=== PATIENT | female | born 1970 | race Caucasian/White ===

== ENCOUNTER 2024-09-15 11:59 | Outpatient (CLI) | payer OTHER, SELFPAY ==
--- NOTE | ~2024-09-15 | XR_ITS ---
Right Shoulder Technique: AP and scapular Y views were obtained. Clinical History: Pain Findings: No fracture or dislocation is seen. Osseous alignment is anatomic. The glenohumeral and acr omioclavicular joint spaces are preserved. Soft tissues are unremarkable. Impression: Unremarkable right shoulder radiographs. Reviewed, dictated and finalized at [facility]. Impression: Unremarkable right shoulder radiographs.
--- OUTSIDE RECORDS SUMMARY | 2024-09-15 12:33 | XMS_ITS | Clinical Summary ---
Author Organization [facility] Address [address] [place] [address] Care Team Providers Care Furnace Installer Name Role Phone Fabi Hoover MD Primary Care Provider Allergies Active Allergy Reactions Criticality Noted Date Comments Codeine Headache 02/28/2020 Medications ondansetron 4 MG disintegrating tablet Take 1 tablet (4 mg total) by mouth every 8 (eight) hours as needed for Nausea. 20 tablet 0 Active HYDROcodone-acetami nophen 5-325 MG tabletIndications:A cute Pain < 7 Day Supply Take 1 tablet by mouth every 8 (eight) hours as needed for Pain. Indications : Acute Pain < 7 Day Supply 10 tablet 0 Active tiZANidine 4 MG tablet Take 1 tablet (4 mg total) by mouth 3 (three) times daily as needed. 20 tablet 1 Active ondansetron (ZOFRAN-ODT) 4 MG disintegrating tablet Take 1 tablet (4 mg total) by mouth every 8 (eight) hours as needed. 20 tablet 4 Active cyclobenzaprine (FLEXERIL) 10 MG tablet Take 1 tablet (10 mg total) by mouth 3 (three) times daily as needed. 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 Gender Identity Not on file Sexual Orientation Not on file Last Filed Vital Signs Vital Sign Reading Time Taken Comments Blood Pressure 117/57 02/04/2024 11:20 AM CDT Pulse 84 02/04/2024 11:20 AM CDT Temperature 36.4 C (97.6 F) 02/04/2024 9:37 AM CDT Respiratory Rate 16 02/04/2024 11:20 AM CDT Oxygen Saturation 97% 02/04/2024 11:20 AM CDT Inhaled Oxygen Concentration - - Weight 45.4 kg (100 lb) 02/04/2024 9:38 AM CDT Height 157.5 cm (5' 2 ) 02/04/2024 9:38 AM CDT Body Mass Index 18.29 02/04/2024 9:38 AM CDT Plan of Treatment Health Maintenance Due Date Last Done Comments Cervical Cancer Screening Pa p Smear (Age 30 to 64) Every 3 Years 1970 Colorectal Cancer Screening Colonoscopy (10 Years) 1970 Annual Physical 1973 DTaP, Tdap and Td Vaccines ( 1 - Tdap) 1989 Hepatitis B Vaccines (1 of 3 - 19+ 3-dose series) 1989 Cervical Cancer Screening Pa p with HPV Testing (Age 30 to 64) Every 5 Years 2000 Cervical Cancer Screening with HPV 2000 Mammogram Screening 2010 Pneumococcal Vaccine: 50+ Ye ars (1 of 1 - PCV) 2020 Zoster Vaccines (1 of 2) 2020 COVID-19 Vaccine (1 - 2023-2 5 season) 2024 Hepatitis C Completed 07/20/2021 Meningococcal B Vaccine Aged Out No l onger eligible based on patient's age to complete this topic Meningococcal Vaccine Aged Out No nicola cristel eligible based on patient's age to complete this topic RSV Immunizations Under 20 Months Aged Out No longer eligible based on patient's age to complete this topic Procedures Procedure Name Priority Date/Time Associated Diagnosis Comments HEPATITIS PANEL,ACUTE STAT 07/20/2021 12:44 AM EMBLEM MAKER from Last 3 Months or Most Recently Relevant to Health Maintenance Results * HEPATITIS PANEL,ACUTE (07/20/2021 12:44 AM EMBLEM MAKER) HEPATITIS B SURFACE AG NON-REACT FARIDA NON-REACT FARIDA 07/20/2021 2:24 AM EMBLEM MAKER [facility] Comment:HBsAg NOT DETECTED. HEP B CORE IGM NON-REACT FARIDA NON-REACT FARIDA 07/20/2021 2:24 AM EMBLEM MAKER [facility] Comment: IgM ANTI HBc NOT DETECTED. DOES NOT EXCLUDE THE POSSIBILITY OF EXPOSURE TO OR INFECTION WITH HBV. NO RETEST REQUIRED. HIGH DOSES OF BIOTIN MAY INTERFERE WITH THIS TEST RESULT. CORRELATION TO CLINICAL HISTORY AND PRESENTATION RECOMMENDED. HAV IGM NON-REACT FARIDA NON-REACT FARIDA 07/20/2021 2:25 AM EMBLEM MAKER [facility] Comment: IgM ANTI HAV NOT DETECTED. DOES NOT EXCLUDE THE POSSIBILITY OF EXPOSURE TO OR INFECTION WITH HAV. LEVELS OF IgM ANTI HAV MAY BE BELOW THE CUTOFF IN EARLY INFECTION. HEPATITIS C AB NON-REACT FARIDA NON-REACT FARIDA 07/20/2021 2:24 AM EMBLEM MAKER [facility] Comment: ANTIBODIES TO HCV NOT DETECTED. DOES NOT EXCLUDE THE POSSIBILITY OF EXPOSURE TO HCV. 07/20/2021 12:4 4 AM EMBLEM MAKER us Dinah Parsons NP LABORATORY Final Result [facility] [address] [place] [address], [id number] from Last 3 Months or Most Recently Relevant to Health Maintenance [place] [address] [place] [address] Care Teams Furnace Installer Relationship Specialty Start Date End Date Fabi Hoover MD [address] [place] [id number] PCP - General INTERNAL MEDICINE 02/04/24
--- OUTSIDE RECORDS SUMMARY | 2024-09-15 12:34 | XMS_ITS | Patient Health Record ---
Author Organization [facility] Address [address] [place] [address] Care Team Providers Care Solidworks Designer Name Role Phone Kb Marieanastacia Primary Care Provider Fabi Hoover [phone] Allergies Allergen (clinical drug ingredient) Drug/Non Drug Allergy documented on EMR Reaction Allergy Type Onset Date Status codeine Codeine Headaches Drug Allergy Active Results Component Value Reference Range Notes OCCULT BLOOD,STOOL(IFOB) * Reviewed date:01/31/2024 08:59:30 AM Interpretation:Positive Performing Lab:[facility], [address] [place] [address] Notes/Report: OCCULT BLOOD STOOL, IFOB Positive Negative H.PYLORI AG, STOOL * Reviewed date:02/04/2024 01:26:33 PM Interpretation:Negative Performing Lab:[facility], [address] [place] [address] Notes/Report: H. PYLORI AG,STOOL Negative Negative Urinalysis, Nonauto W/O Scop e (UA Dip) IH Reviewed date:02/04/2024 05:05:20 PM Interpretation:Abnormal Performing Lab: Notes/Report: Abnormal Blood 10 Fortino/uL Leukocytes Negative U/A Dip clear Nitrites Negative Urobilinogen 0.2 Protein Negative pH 6.0 specific gravity 1.015 ketones Negative bilirubin Negative glucose Negatove COMPREHENSIVE METABOLIC PANE L (CMP) * Reviewed date:01/29/2024 01:11:41 PM Interpretation: Performing Lab:[facility], [address] [place] [id number] Notes/Report: BLOOD UREA NITROGEN 13 6-20 MG/DL SODIUM 140 135-145 MMOL/L POTASSIUM 3.9 3.5-5.2 MMOL/L CHLORIDE 102 98-108 MMOL/L CO2 CONTENT 30 24-32 MMOL/L GLUCOSE 112 65-110 MG/DL CALCIUM 9.9 8.6-10.6 MG/DL CREATININE 0.76 0.40-1.20 MG/DL TOTAL PROTEIN 6.6 6.0-8.0 GM/DL ALBUMIN 4.5 3.4-5.0 GM/DL ALK PHOS 65 40-125 U/L ALT 15 7-50 U/L AST 18 10-40 U/L BILIRUBIN, TOTAL 0.7 0.0-1.2 MG/DL ANION GAP 8 3-11 MMOL/L ESTIMATED GLOMERULAR FILTRATION RATE, CKD-EPI 94 >=60 mL/min/1.73m*2 BLOOD COUNT WITH DIFF * Reviewed date:01/29/2024 01:11:41 PM Interpretation: Performing Lab:[facility], [address] [place] [address] Notes/Report: WBC 8.5 3.9-12.0 K/UL RBC 4.76 3.80-5.40 M/UL HEMOGLOBIN 15.0 11.7-16.0 GM/DL HEMATOCRIT 44.5 35.0-49.0 % MCV 93.4 80.0-99.0 FL MCH 31.4 26.0-35.0 PG MCHC 33.6 32.0-37.0 GM/DL RDW 13.6 11.6-15.0 % PLATELET 371 150-450 K/UL MPV 9.1 6.5-11.0 FL METHOD Automated Differential % NEUTROPHIL - AUTOMATED COUNT 48.1 40.0-70.0 % % LYMPHOCYTE - AUTOMATED COUNT 42.9 25.0-45.0 % % MONOCYTE - AUTOMATED COUNT 6.0 2.0-12.0 % % EOSINOPHIL - AUTOMATED COUNT 2.0 0.0-6.0 % % BASOPHIL - AUTOMATED COUNT 1.0 0.0-2.0 % ABSOLUTE NEUTROPHIL - AUTOMATED COUNT 4.1 1.3-7.5 K/UL ABSOLUTE LYMPHOCYTE - AUTOMATED COUNT 3.6 1.3-4.2 K/UL ABSOLUTE MONOCYTE - AUTOMATED COUNT 0.5 0.2-1.0 K/UL ABSOLUTE EOSINOPHIL - AUTOMATED COUNT 0.2 0.0-0.5 K/UL ABSOLUTE BASOPHIL - AUTOMATED COUNT 0.1 <=0.2 K/UL NUCLEATED RBC'S - AUTOMATED COUNT 0.2 VITAMIN B12 * Reviewed date:08/01/2024 11:55:32 AM Interpretation:Normal Performing Lab:[facility], [address] [place] [address] Notes/Report: VITAMIN B12 [id number] PG/ML Indeterminate Range: 145 - 180 pg/mL Deficient Range: <145 pg/mL BLOOD COUNT WITH DIFF * Reviewed date:08/01/2024 11:32:13 AM Interpretation:Normal Performing Lab:[facility], [address] [place] [address] Notes/Report: WBC 7.6 3.9-12.0 K/UL RBC 4.24 3.80-5.40 M/UL HEMOGLOBIN 13.3 11.7-16.0 GM/DL HEMATOCRIT 39.2 35.0-49.0 % MCV 92.3 80.0-99.0 FL MCH 31.4 26.0-35.0 PG MCHC 34.0 32.0-37.0 GM/DL RDW 13.9 11.6-15.0 % PLATELET 339 150-450 K/UL MPV 8.9 6.5-11.0 FL METHOD Automated Differential % NEUTROPHIL - AUTOMATED COUNT 55.5 40.0-70.0 % % LYMPHOCYTE - AUTOMATED COUNT 35.6 25.0-45.0 % % MONOCYTE - AUTOMATED COUNT 5.8 2.0-12.0 % % EOSINOPHIL - AUTOMATED COUNT 2.1 0.0-6.0 % % BASOPHIL - AUTOMATED COUNT 1.0 0.0-2.0 % ABSOLUTE NEUTROPHIL - AUTOMATED COUNT 4.2 1.3-7.5 K/UL ABSOLUTE LYMPHOCYTE - AUTOMATED COUNT 2.7 1.3-4.2 K/UL ABSOLUTE MONOCYTE - AUTOMATED COUNT 0.4 0.2-1.0 K/UL ABSOLUTE EOSINOPHIL - AUTOMATED COUNT 0.2 0.0-0.5 K/UL ABSOLUTE BASOPHIL - AUTOMATED COUNT 0.1 <=0.2 K/UL NUCLEATED RBC'S - AUTOMATED COUNT 0.1 COMPREHENSIVE METABOLIC PANE L (CMP) * Reviewed date:08/01/2024 11:55:58 AM Interpretation:Normal Performing Lab:[facility], [address] [place] [address] Notes/Report: BLOOD UREA NITROGEN 8 6-20 MG/DL SODIUM 143 135-145 MMOL/L POTASSIUM 5.1 3.5-5.2 MMOL/L CHLORIDE 106 98-108 MMOL/L CO2 CONTENT 28 24-32 MMOL/L GLUCOSE 85 65-110 MG/DL CALCIUM 9.6 8.6-10.6 MG/DL CREATININE 0.71 0.40-1.20 MG/DL TOTAL PROTEIN 6.3 6.0-8.0 GM/DL ALBUMIN 4.2 3.4-5.0 GM/DL ALK PHOS 63 40-125 U/L ALT 20 7-50 U/L AST 21 10-40 U/L BILIRUBIN, TOTAL 0.4 0.0-1.2 MG/DL ANION GAP 9 3-11 MMOL/L ESTIMATED GLOMERULAR FILTRATION RATE, CKD-EPI 101 >=60 mL/min/1.73m*2 HB A1C * Reviewed date:08/01/2024 11:55:48 AM Interpretation:Normal Performing Lab:[facility], [address] [place] [id number] Notes/Report: GLYCOSYLATED HGB 5.3 <5.7 % Normal: <5.7% Prediabetes: 5.7-6.4% Diabetes: >=6.5% The reference interval and criteria for diagnosing diabetes are based on the recommendations by [place] [employer] (Standards of Medical Care in Diabetes-2017, Diabetes Care, Volume 40, Supplement 1, 2017). LIPID PANEL * Reviewed date:08/01/2024 11:31:08 AM Interpretation:Normal Performing Lab:[facility], [address] [place] [address] Notes/Report: CHOLESTEROL 197 <200 MG/DL HDL 74 >40 MG/DL TRIGLYCERIDE 86 <150 MG/DL LDL, CALCULATED 106 <130 MG/DL TSH * Reviewed date:08/01/2024 11:55:40 AM Interpretation:Normal Performing Lab:[facility], [address] [place] [address] Notes/Report: TSH 0.64 0.35-4.00 MCIU/ML VITAMIN D (25 OH) * Reviewed date:08/01/2024 05:33:03 PM Interpretation:Low Performing Lab:[facility], [address] [facility], [place] [address] Notes/Report: VITAMIN D (25OH) 7 20-80 NG/ML <10 ng/mL: Deficiency 10-19 ng/mL: Insufficiency 20-80 ng/mL: Optimum level >80 ng/mL: Possible Toxicity Reason For Referral Reason Please evaluate and treat . 53 yo Female . Needs screening colonoscopy as she never had a colonoscopy Diagnosis 1 Blood in the stool ( K92.1) Referral Organization [facility] Referring Provider First Name [facility] Referring Provider Last Name Efra Referring Provider Speciality Internal edicine Referred Provider [facility] Referred Provider Specialty Gastroentero logy General Notes Claire Watt 024 01:25:28 PM >Referral was sent to [facility] ([facility]), awaiting appointment, Claire Watt 02/04/2024 02:44:37 PM >Appt: 02/13/2024 at 3:00PM [facility] - [place] Hammer NP, [address] [place] [address] 1st Floor Clinic [place], [place], Carleen Kingsley 02/14/2024 08:17:03 AM >PT ARRIVED, NOTES OBTAINED Referral Priority Routine Referral Appointment Date 02/13/2024 Reason Please evaluate and treat , 53 yo female with increased urinary frequency ( UA negative for leuk, nitrates, + Blood ) + Concern for nephrolithiasis. Please evaluate patient with CT scan . Diagnosis 1 Increased urinary fr equency (R35.0) Diagnosis 2 Gross hematuria (R31 .0) Referral Organization [facility] Referring Provider First Name Fabi Referring Provider Last Name Errol Referring Provider Speciality Internal edicine Referred Provider Specialty Emergency Sd dicine Referral Priority Routine Medications Medication SIG (Take, Route, Frequency, Duration) Notes Start Date End Date Status Fluticasone Propionate 50 MCG/ACT 1 spray in each nostril Nasally Once a day for 30 day(s) 01/17/2022 Active Cholecalciferol 1.25 MG (04982 UT) 1 capsule Orally ONCE a week for 84 days 08/15/2024 Not-Taking hydrOXYzine Pamoate 25 MG TAKE 1 CAPSULE BY MOUTH TWICE DAILY as NEEDED FOR ANXIETY for 30 days Active Albuterol Sulfate HFA 108 (90 Base) MCG/ACT 2 puffs as needed every 6 hrs for 30 days Active Symbicort 80-4.5 MCG/ACT INHALE 2 PUFFS INTO THE LUNGS EVERY DAY FOR 30 DAYS for 30 days Active FLUoxetine HCl 20 MG TAKE 1 CAPSULE BY MOUTH EVERY DAY FOR 30 DAYS for 30 days Active Immunizations Vaccine Route Administration Date Status Comme nts PNEUMOCOCCAL VACC 13 AYLEEN IM Unknown 06/13/2021 Refused Moderna COVID-19 Unknown 05/03/2021 Administered Moderna COVID-19 Unknown 05/31/2021 Administered FLU VAC TRIVAL (3 AYLEEN) NO NJ SV >6 MO Unknown 07/31/2024 Refused FLU VAC NO PRSV 4 AYLEEN >6 MO Unknown 05/30/2019 Refused FLU VAC NO PRSV 4 AYLEEN >6 MO Unknown 06/13/2021 Refused FLU VAC NO PRSV 4 AYLEEN >6 MO Unknown 12/23/2021 Refused Social History Tobacco Use: Social History Observation Description Date Details (start date - stop date) Current Smoker NA - NA Sexual History Question Answer Notes Had sex in the past 12 months (vaginal, oral, or anal)? Yes with Men only Use protection? No Have you ever had a Sexually transmitted disease ? Yes Tobacco use other than smoking: Question Answer Notes Are you an other tobacco user? No Tobacco Control (Standard) Question Answer Notes Tobacco use: Current smoker How often do you smoke cigarettes? Every day How many cigarettes a day do you smoke? 11-20 How soon after you wake up d o you smoke your first cigarette? Within 5 minutes Are you interested in quitting? Thinking about q uitting AUDIT-C (Standard) Question Answer Notes Did you have a drink contain ing alcohol in the past year? Yes How often did you have six o r more drinks on one occasion in the past year? Never (0 point) How many drinks did you have on a typical day when you were drinking in the past year? 1 or 2 drinks (0 point) How often did you have a dri nk containing alcohol in the past year? 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 Active confirmed Problem 18868693 Anxiety (F41.9) Active confirmed Problem Caries (83721759) Caries (K02.9) Active confirm ed Problem Dyslipidemia (860182450) Dyslipidemia (E78.5) Active confirmed Problem 360219174 COPD exacerbatio n (J44.1) Active confirmed Problem 496261829 Tobacco abuse (Z72.0) Active confirmed Problem Mixed anxiety and depressive disorder (644482823) Anxiety and depression (F41.9) Active confirmed Problem COPD - Chronic obstructive pulmonary disease (96821989) Chronic obstructive pulmonary disease, unspecified COPD type (J44.9) Active confirmed Problem 96846087 LOVE (generalized anxiety disorder) (F41.1) Active confirmed Problem Chronic sinusitis (46506877) Sinus infection (J32.9) Active confirmed Problem 641906399 Mitral valve prolapse (I34.1) Active confirmed Problem 26580438 Chronic fatigue (R53.82) Active confirmed Problem 37055275 Severe episode o f recurrent major depressive disorder, without psychotic features (F33.2) Active confirmed Problem 417152815306625 Left carpal tunn el syndrome (G56.02) Active confirmed Problem Vitamin D deficiency (30787921) Unspecified vitamin D deficiency (E55.9) Active confirmed Problem Sialoadenitis (92115244) Salivary gland infection (K11.20) Active confirmed Problem 4186178167573284 Chronic otitis media of both ears with effusion (H65.493) Active confirmed Problem 354713159 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 confirmed Problem 567920750 Mammogram declin ed (Z53.20) Active confirmed Problem Gastroesophageal reflux disease without esophagitis (797584954) Gastroesophageal reflux disease without esophagitis (K21.9) Problem resolved confirmed Problem 84468967 Depression, unspecified depression type (F32.9) Problem resolved confirmed Vital Signs Heart Rate 98 /min 08/18/2024 Temperature 98.3 degrees Fahrenheit 07/31/2024 Respiratory Rate 16 /min 08/18/2024 Oximetry 94 % 08/18/2024 Blood pressure diastolic 71 mm Hg 08/18/2024 Height-cm 157.48 cm 08/18/2024 Weight-kg 44 kg 08/18/2024 Height 62 in 08/18/2024 Blood pressure systolic 114 mm Hg 08/18/2024 Weight 97.0 lbs 08/18/2024 BMI 17.74 kg/m2 08/18/2024 Encounters Encounter Location Date Provider Diagnosis [address] [address] 01/28/2024 Fabi Steriu Tobacco abuse Z72.0 ; Tobacco abuse counseling Z71.6 ; Blood in the stool K92.1 ; Left upper quadrant abdominal pain R10.12 and Nausea R11.[address] [address] 02/04/2024 Fabi Steriu Lumbar back pain M54.50 ; Increased urinary frequency R35.0 ; Renal colic N23 ; Gross hematuria R31.0 and Pain with urination R30.[address] [address] 07/31/2024 Mastan Indlamuri Chronic obstructive pulmonary disease, unspecified COPD type J44.9 ; Anxiety and depression F41.9 ; Encounter for annual wellness visit Z00.00 ; Dyslipidemia E78.5 ; Sinus infection J32.9 ; Right shoulder pain, unspecified chronicity M25.511 and Tobacco abuse Z72.[address] [address] 08/18/2024 Mastan Indlamuri Tobacco abuse Z72.0 and Multiple joint pain M25.[address] [address] 01/29/2024 Fabi Steriu Blood in the stool K92.[address] [address] 08/01/2024 Mastan Indlamuri Unspecified vitamin D deficiency E55.9 Assessments Encounter Date Diagnosis (ICD Code) Assessment Notes Treatment Notes Treatment Clinical Notes Section Notes 01/28/2024 Tobacco abuse (ICD-10 - Z72.0) 01/29/2024 Blood in the stool (ICD-10 - K92.1) 02/04/2024 Increased urinary frequency (ICD-10 - R35.0) UA negative for WBC , positive for blood . 02/04/2024 Lumbar back pain (ICD-10 - M54.50) 07/31/2024 Anxiety and depression (ICD-10 - F41.9) 1. Continue medication as directed. 2. Keep next visit appointment. 3. Please make an appointment for mental health counseling. 4. For symptoms of suicide or for thoughts of hurting self or others seek emergency medical attention. 5. Encourage a healthy diet and frequent exercise to help improve mood. 6. Avoid alcohol, drugs, and excessive caffeine 07/31/2024 Chronic obstructive pulmonary disease, unspecified COPD type (ICD-10 - J44.9) To control COPD Do not smoke. Smoking can make COPD and asthma worse. Learn what sets off your COPD and asthma. Avoid these triggers when you can. Common triggers include smoke, pollen, pollution, and infections like COVID-19, colds, the flu, or pneumonia. Check yourself for symptoms to know which step to follow in your action plan. Watch for things like being short of breath, having chest tightness, and coughing more than usual. Look for a change in the color or thickness of your mucus. Also notice if symptoms wake you up at night or if you get tired quickly when you exercise. Check your lungs with a peak flow meter. Peak flow can tell you how well your lungs are working. Try pulmonary rehabilitation. This combines different treatments to help you reduce your symptoms and stay as active and healthy as you can. During an exacerbation Do not panic if you start to have one. Quick treatment may help you prevent serious breathing problems. Use your emergency inhaler as directed . With inhaled medicines, a spacer or a nebulizer may help you get more medicine to your lungs. Ask your doctor or pharmacist how to use them properly. Practice using the spacer in front of a mirror before you have an exacerbation. This may help you get the medicine into your lungs quickly. If your symptoms do not get better after you use your medicine, have someone take you to the emergency room. Call an ambulance if necessary. And call your doctor if you need to use antibiotic or steroid pills. If your symptoms do not get better after you use your medicine, have someone take you to the emergency room. Call an ambulance if necessary. Preventing an exacerbation Do not smoke. This is the most important step you can take to prevent more damage to your lungs and prevent problems. If you already smoke, it is never too late to stop. Take your daily medicines as prescribed. Avoid infections such as COVID-19, colds, and the flu. Wash your hands often. Stay up to date on your COVID-19 / Flu / Pneumonia / whooping cough (pertussis) vaccines. Avoid secondhand smoke and air pollution. Try to stay inside with your windows closed when air pollution is bad. Learn breathing techniques for COPD, such as pursed-lip breathing. These techniques may help you breathe easier during an exacerbation. , Chronic Obstructive Pulmonary Disease (COPD) Flare-Ups: Care Instructions material was printed 08/01/2024 Unspecified vitamin D deficiency (ICD-10 - E55.9) 08/18/2024 Tobacco abuse (ICD-10 - Z72.0) Learning About Benefits of Quitting Smoking material was printed 08/18/2024 Multiple joint pain (ICD-10 - M25.50) likely musculoskeletal, Normal Joint examination of knee, shoulders. Discussed various modes of management not limited to 1. Rest and elevate painful joint. Use ice or heat as needed. 2. local application of anti-inflammatory gel like Voltaren/Bengay/As percreme 3. continuing with NSAIDs like naproxen/ibuprofen /Tylenol, Musculoskeletal Pain: Care Instructions material was printed, Joint Pain: Care Instructions material was printed 07/31/2024 Encounter for annual wellness visit (ICD-10 - Z00.00) Well Visit, Ages 18 to 65: Care Instructions material was printed, Learning About Sleeping Well material was printed 02/04/2024 Renal colic (ICD-10 - N23) 01/28/2024 Tobacco abuse counseling (ICD-10 - Z71.6) 07/31/2024 Dyslipidemia (ICD-10 - E78.5) advised to watch diet, Learning About High Cholesterol material was printed 02/04/2024 Gross hematuria (ICD-10 - R31.0) 01/28/2024 Blood in the stool (ICD-10 - K92.1) 01/28/2024 Left upper quadrant abdominal pain (ICD-10 - R10.12) 07/31/2024 Sinus infection (ICD-10 - J32.9) afebrile, 1 Encouraged to take meds as prescribed 2 Encouraged to complete the whole course of po antibiotic 3 Educated about side effect/adverse effect , if sob, rashes, cp advised to go to ER for possible allergic reaction 4 Encourage to stop smoking 5 Encourage to increase fluid intake. 6 May use vaporzer to ease the nasal congestion. 7 RTC in 2 wks. If symptoms get worse must see clinician sooner. , Acute Sinusitis: Care Instructions material was printed 01/28/2024 Nausea (ICD-10 - R11.0) 07/31/2024 Right shoulder pain, unspecified chronicity (ICD-10 - M25.511) chronic, Shoulder Pain: Care Instructions material was printed 02/04/2024 Pain with urination (ICD-10 - R30.9) 07/31/2024 Tobacco abuse (ICD-10 - Z72.0) 07/31/2024 Other Patient verbalizes understanding of instructions & agreed with the plan. Advised to call clinic for any acute concerns. common side effects of the medications are discussed. 02/04/2024 Study ResultNarrative & ImpressionTam[place] [address] PROCEDURE: CT ABD+PEL KIDNEY STONE HISTORY: Right flank pain. TECHNIQUE: Helical CT of the abdomen and pelvis was performed without intravenous contrast. A dose lowering technique was used for this procedure, which may include, but is not limited to, dose reduction technique, automated exposure control, the use of iterative reconstruction, and ALARA (As Low As Reasonably Achievable) / Image Gently techniques. COMPARISON: CT abdomen pelvis with contrast, 02/28/2020. FINDINGS CT ABDOMEN/PELVIS: Lower thorax: There is subsegmental atelectasis in the lower lobes. The heart is normal in size. Liver: The liver is normal in size. Low-density focus within the right hepatic lobe measuring up to 3.0 cm, which corresponds to the known right hepatic lobe hemangioma. Biliary tree: The gallbladder is present. There is no biliary ductal dilatation. Spleen: The spleen is normal in size. Pancreas: The pancreas is normal in size. There are no pancreatic calcifications. The pancreatic duct is not dilated. Adrenal glands: The adrenal glands are normal in size and shape. Kidneys: There is no hydronephrosis. No renal or ureteric stones are seen. There is a 3.1 cm partially exophytic anterior left renal cyst. Lymph nodes: Abdomen: There is no abdominal adenopathy. Pelvis: There is no pelvic adenopathy. Vasculature: There is no abdominal aortic aneurysm. Atherosclerotic calcification is seen. Peritoneum/mesente ry/omentum: There is no free fluid or free air. GI tract: There is no bowel obstruction. The appendix is normal. The terminal ileum is unremarkable. There is no abnormal bowel wall thickening to suggest acute inflammation. Pelvic urogenital structures:The bladder is grossly unremarkable. The uterus is present. There is no adnexal mass. Body wall: There are degenerative changes in the spine. No aggressive osseous lesions are identified. Limitations: Evaluation of the solid parenchymal organs and vasculature is limited due to lack of intravenous contrast. Cornell: (S/I) = series number / image number IMPRESSION: 1. No renal, ureteric or bladder stones are identified. There is no hydronephrosis. 2. No CT evidence of bowel obstruction or acute appendicitis. 11/22/2020 Study ResultNarrative & ImpressionExaminat ion: CTA chest. Clinical Information: Chest pain. Patient reports left-sided rib pain for the past week. Comparison:Two-vie w chest radiograph 11/18/[address] abdomen pelvis 04/23/2017.. Technique:IV contrast: 50 mL Isovue 370.Technical comments: CTA of the chest was performed according to the pulmonary embolism protocol. Coronal MIP images were submitted for evaluation.Dose reduction: This CT exam was performed using one or more of the following dose reduction techniques: Automated exposure control, adjustment of the mA and/or kV according to patient size, and/or use of iterative reconstruction technique. Findings:PULMONARY VASCULATUREThere is adequate opacification of the pulmonary arterial tree. There is no evidence to suggest acute pulmonary thromboembolic disease. MEDIASTINUMThe heart is normal in size with no pericardial effusion. The thoracic aorta is normal in caliber. There is no mediastinal or hilar adenopathy. LUNGS AND PLEURALungs: Evaluation of the lung parenchyma is suboptimal due to patient respiratory motion. There is no focal pulmonary consolidation.Pleu ra: There is no pleural effusion or pneumothorax. UPPER ABDOMENImages through the upper abdomen demonstrate no gross abnormality. There is a nonspecific cystic focus along the left anterior kidney that appears similar to that seen on prior CT abdomen and pelvis from 04/23/2017. BONES/SOFT TISSUESThere is no destructive osseous lesion. Mild degenerative disc disease affects the thoracic spine. Impression:1. No acute pulmonary thromboembolic disease.2. No focal pulmonary consolidation or other acute finding to account for the patient's left-sided rib pain. 08/18/2024 Other Patient verbalizes understanding of instructions & advised to call clinic for any acute concerns Plan Of Treatment Pending Test Test Name Order Date CT Scan : Abdomen and Pelvis W Contrast : [id number] 01/28/2024 X ray : Chest with 2 views : 72964 11/18 MAMMOGRAM, SCREENING : [id number] 06/24/2018 CT Scan : Chest - PE Protocol : 33473 H.PYLORI AG, STOOL * 01/28/2024 OCCULT BLOOD,STOOL(IFOB) * 01/28/2024 Echocardiogram (2D) : (Limited or Follow up study) : [id number] 12/23/2021 URINE CULTURE,CLEAN VOIDED 08/13/2020 URINE CULTURE,CLEAN VOIDED 11/19/2020 FUNGUS CULTURE-THROAT,URINE,VAGINAL 0 06/13/2021 Insurance Providers Payer Name Payer Address Payer Phone Subscriber Number Group Number Insured Name Patient Relationship to Insured Coverage Start Date Coverage End Date [facility] [address] [place] [phone] [id number] Maris Lennon Self - patient is the insured Medical (General) History Medical History History ICD Code Cardiac arrhythmia, unspecified cardiac arrhythmia type I49.9 Cyst of ovary, unspecified laterality N8 3.209 Intermittent asthma without complication , unspecified asthma severity J45.20 Mitral valve prolapse I34.1 Gastroesophageal reflux disease without esophagitis (resolved 05/27/2021) Sinus infection J32.9 Dyslipidemia E78.5 Chronic obstructive pulmonary disease, u nspecified COPD type J44.9 Caries K02.9 Disease of salivary gland, unspecified K 11.9 Chronic otitis media of both ears with e ffusion H65.493 Severe episode of recurrent major depressive disorder, without psychotic features F33.2 Anxiety F41.9 Mammogram declined Z53.20 Tobacco abuse Z72.0 Left carpal tunnel syndrome G56.02 History of Margarito-Easton virus infection Z86.19 Chronic fatigue R53.82 Surgical History Surgery Date(Month/Year) cyst on ovary Hospitalization History Reason Date(Month/Year) [facility]- Rib pain 11/2020 Dehydration and hyokalemia [facility]
--- OUTSIDE RECORDS SUMMARY | 2024-09-15 12:34 | XMS_ITS ---
Author Organization [facility] Address [address] [place] [address] Care Team Providers Care Tig Welder Name Role Phone Benton Quiles Primary Care Provider [phone] Allergies Allergen (clinical drug ingredient) Drug/Non Drug Allergy documented on EMR Reaction Allergy Type Onset Date Status codeine Codeine Headaches Drug Allergy Active REASON FOR VISIT 6 week f/u Encounters Encounter Location Date Provider Diagnosis [facility] [address] [place] [address] 09/11/2024 Benton Quiles Plan Of Treatment No Information Progress Notes * JUAN MIGUELLena PaceKevanOB: [birth year] (54 yo F)Acc No.[id number]:09/11/2024 Progress Notes Patient: Maris AGUILERA Provider: Patria Quiles MD :1970 A ge:54 Y S ex:Female Date:09/11/2024 Address:[address], [address] [facility] Subjective: * Chief Complaints: * 1 . 6 week f/u. * Medical History: C ardiac arrhythmia, unspecified cardiac arrhythmia type, Cyst of ovary, unspecified laterality, Intermittent asthma without complication, unspecified asthma severity, Mitral valve prolapse, Gastroesophageal reflux disease without esophagitis (resolved 05/27/2021), Sinus infection, Dyslipidemia, Chronic obstructive pulmonary disease, unspecified COPD type, Caries, Disease of salivary gland, unspecified, Chronic otitis media of both ears with effusion, Severe episode of recurrent major depressive disorder, without psychotic features, Anxiety, Mammogram declined, Tobacco abuse, Left carpal tunnel syndrome, History of Margarito-Easton virus infection, Chronic fatigue. * Allergies: C odeine: Headaches - Side Effects. Objective: Assessment: Plan: * Treatment: * Care Plan Details* * Electronic signature of Marie Quiles MD on 09/15/2024 at 12:33 PM CDT Sign off status: Pending Visit Status: N /S (No-Show) * Provider: Patria Quiles MD Date: 09/11/2024 Generated for Waldemar galeano/Jt/Kendell on: 09/15/2024 12:33 PM CDT
== END 2024-09-15 12:00 | disposition home or self-care (01) ==
LOC: CHSIMG 12:04
PROVIDERS: PCP Physician Assistant; Visit Provider Physician Assistant
DX: M25.511 Pain in right shoulder (principal)
CPT/HCPCS: 73030